=== PATIENT | male | born 1960 | race Caucasian/White ===

== ENCOUNTER 2021-02-14 16:53 | Inpatient (IN) | payer OTHER ==
[~2021-02-14] VITALS: Ht 180.3 cm; Wt 121.3 kg
--- NOTE | ~2021-02-14 | PROC ---
[address] [address] PROCEDURE REPORT Name: ZACHERY IRAHETA Room: [address] IN M.R.#: [id number] Admission: 02/14/21 Attend Phys: Yareli Crooks MD Discharge: 02/17/21 Date of : 58 Report #: [id number] THIS REPORT FOR: cc: FAM - No family physician/PCP FAM - No family physician/PCP [facility],Medical Records Staff ~ For GI report, please see the Provation report in Perceptive 7 content. By: 0648Medical Records Staff DRISS /[place]
[~2021-02-14 16:53] MED LIST: ASPIR 8181 MG PO; EFFIENT10 MG PO; LIPITOR 20 MG T20 M1 PO; LISINOPRIL5 MG PO; NITROGLYCERIN0.4 MG SUBLING; TOPROL XL25 MG PO
[2021-02-14 17:06] VITALS: BP 133/72
[2021-02-14 17:39] LABS: ABSOLUTE BASOPHILS 0.2 thou/uL (0.0-0.2); ABSOLUTE LYMPHOCYTES 3.2 thou/uL (0.8-5.3); ABSOLUTE MONOCYTES 0.5 thou/uL (0.0-1.2); ABSOLUTE NEUTROPHILS 7.4 thou/uL (1.6-8.1); BASOPHILS 1.4 %; EOSINOPHILS 0.3 %; HEMATOCRIT 34.9 % (42.0-52.0); HEMOGLOBIN 11.7 gm/dL (14.0-18.0); LYMPHOCYTES 28.1 %; MCH 34.3 pg (26.0-34.0); MCHC 33.6 g/dL (28.0-37.0); MONOCYTES 4.1 %; MPV 8.2 fl. (7.2-11.1); NUCLEATED RBCS 0 /100WBC; PLATELET COUNT* 213 thou/uL (150-400); POLYS 66.1 %; RBC 3.42 mil/uL (4.50-6.00); RDW-CV 13.5 % (10.5-14.5); WBC 11.3 thou/uL (4.0-11.0)
[2021-02-14] MEDS ORDERED: PRILOSEC OTC20 MG PO (17:52)
[2021-02-14 18:06] LABS: CALCIUM 8.7 mg/dL (8.5-10.1); POTASSIUM 4.8 mmol/L (3.5-5.1)
[2021-02-14 18:09] LABS: ALBUMIN 3.3 g/dL (3.4-5.0); TOTAL BILIRUBIN 0.9 mg/dL (<0.1-1.0); TOTAL PROTEIN 7.6 g/dL (6.4-8.2)
[2021-02-14 19:50] LABS: URINE BILIRUBIN NEGATIVE (Negative); URINE BLOOD NEGATIVE (Negative); URINE CLARITY CLEAR; URINE COLOR YELLOW; URINE GLUCOSE-RANDOM NEGATIVE (Negative); URINE KETONES NEGATIVE (Negative); URINE LEUKOCYTES-REFLEX NEGATIVE (Negative); URINE NITRITE-REFLEX NEGATIVE (Negative); URINE PROTEIN NEGATIVE (Negative); URINE SPECIFIC GRAVITY <= 1.005 (1.005-1.030); URINE UROBILINOGEN 0.2 E.U./dl (0.2-1.0)
[2021-02-14 19:57] LABS: AMP/METHAMP Negative (Negative); BARBITURATES Negative (Negative); BENZODIAZEPINES Negative (Negative); COCAINE Negative (Negative); METHADONE Negative (Negative); OPIATES Negative (Negative); PCP Negative (Negative); THC POSITIVE (Negative)
[2021-02-14 20:34] LABS: ABSOLUTE BASOPHILS 0.1 thou/uL (0.0-0.2); ABSOLUTE MONOCYTES 0.5 thou/uL (0.0-1.2); ABSOLUTE NEUTROPHILS 6.6 thou/uL (1.6-8.1); BASOPHILS 0.6 %; EOSINOPHILS 0.1 %; HEMATOCRIT 30.3 % (42.0-52.0); HEMOGLOBIN 10.4 gm/dL (14.0-18.0); LYMPHOCYTES 29.9 %; MCHC 34.4 g/dL (28.0-37.0); MCV 101.7 fL (80.0-100.0); MONOCYTES 4.5 %; NUCLEATED RBCS 0 /100WBC; PLATELET COUNT* 173 thou/uL (150-400); POLYS 64.9 %; RBC 2.98 mil/uL (4.50-6.00); RDW-CV 13.8 % (10.5-14.5); WBC 10.2 thou/uL (4.0-11.0)
[2021-02-14 23:30] VITALS: BP 117/64
[2021-02-15 03:30] VITALS: BP 129/67
[2021-02-15 03:35] LABS: ABSOLUTE BASOPHILS 0.1 thou/uL (0.0-0.2); ABSOLUTE EOSINOPHILS 0.1 thou/uL (0.0-0.7); ABSOLUTE LYMPHOCYTES 4.1 thou/uL (0.8-5.3); ABSOLUTE MONOCYTES 0.6 thou/uL (0.0-1.2); ABSOLUTE NEUTROPHILS 6.4 thou/uL (1.6-8.1); BASOPHILS 0.5 %; EOSINOPHILS 0.7 %; HEMATOCRIT 28.8 % (42.0-52.0); HEMOGLOBIN 9.9 gm/dL (14.0-18.0); LYMPHOCYTES 36.4 %; MCH 35.1 pg (26.0-34.0); MCHC 34.5 g/dL (28.0-37.0); MCV 101.9 fL (80.0-100.0); MONOCYTES 5.6 %; MPV 7.9 fl. (7.2-11.1); NUCLEATED RBCS 0 /100WBC; PLATELET COUNT* 179 thou/uL (150-400); POLYS 56.8 %; RBC 2.82 mil/uL (4.50-6.00); WBC 11.3 thou/uL (4.0-11.0)
[2021-02-15 03:43] LABS: CALCIUM 8.2 mg/dL (8.5-10.1); POTASSIUM 4.1 mmol/L (3.5-5.1)
[2021-02-15 03:46] LABS: INR 1.1; PROTIME 11.4 Seconds (9.20-11.50)
[2021-02-15 04:44] LABS: ESR (SEDRATE) 30 mm/hr (0-20)
--- NOTE | 2021-02-15 06:17 | EKG ---
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 : 1960 Requested By: Yelena Barton Order Number: [id number] MD: Bassam Miller Measurements Intervals [place] Rate: 91 P: 85 CO: 128 QRS: 55 QRSD: 94 T: 31 QT: 384 QTc: 473 Interpretive Statements Sinus rhythm Probable left atrial enlargement Inferior infarct, old, possible Myocardial infarct finding no longer present ST (T wave) deviation no longer present Possible ischemia no longer present Electronically Signed On 02-15-2021 6:17:03 CDT by Bassam Miller [email or web address] <ELECTRONICALLY SIGNED> By: Bassam Miller MD, FACC 02/15/21 0617 1725 172 Bassam Miller MD, FACC /EPI
[2021-02-15 07:30] VITALS: BP 121/77
[2021-02-15 09:45] VITALS: BP 121/77
[2021-02-15 14:31] VITALS: BP 139/79
[2021-02-15 19:02] LABS: HEMATOCRIT 28.8 % (42.0-52.0); HEMOGLOBIN 9.9 gm/dL (14.0-18.0)
[2021-02-15] MEDS ORDERED: ASA81BEC PO (19:15)
[2021-02-15 20:00] VITALS: BP 138/85
[2021-02-16 00:59] VITALS: BP 114/74
[2021-02-16 04:00] VITALS: BP 120/55
[2021-02-16 04:42] LABS: ABSOLUTE EOSINOPHILS 0.1 thou/uL (0.0-0.7); ABSOLUTE MONOCYTES 0.4 thou/uL (0.0-1.2); ABSOLUTE NEUTROPHILS 4.3 thou/uL (1.6-8.1); BASOPHILS 0.5 %; EOSINOPHILS 1.6 %; HEMATOCRIT 26.5 % (42.0-52.0); HEMOGLOBIN 9.3 gm/dL (14.0-18.0); LYMPHOCYTES 45.3 %; MCH 35.6 pg (26.0-34.0); MCV 101.6 fL (80.0-100.0); MONOCYTES 4.5 %; NUCLEATED RBCS 0 /100WBC; PLATELET COUNT* 174 thou/uL (150-400); POLYS 48.1 %; RBC 2.61 mil/uL (4.50-6.00); RDW-CV 13.8 % (10.5-14.5); WBC 8.8 thou/uL (4.0-11.0)
[2021-02-16 05:12] LABS: ALBUMIN 2.8 g/dL (3.4-5.0); CALCIUM 7.9 mg/dL (8.5-10.1); POTASSIUM 4.1 mmol/L (3.5-5.1); TOTAL BILIRUBIN 0.8 mg/dL (<0.1-1.0); TOTAL PROTEIN 6.4 g/dL (6.4-8.2)
[2021-02-16 08:14] VITALS: BP 130/79
[2021-02-16 12:00] VITALS: BP 95/54
[2021-02-16 13:01] VITALS: BP 128/70
[2021-02-16 20:00] VITALS: BP 121/72
[2021-02-16 21:06] LABS: IgG 1086 mg/dL (603-1613); IgM 102 mg/dL (20-172)
[2021-02-17] VITALS (8 sets, daily range): BP systolic 94–117; BP diastolic 58–72
[2021-02-17 05:07] LABS: HEPATITIS B SURFACE AG Negative (Negative)
[2021-02-17 05:21] LABS: CALCIUM 7.8 mg/dL (8.5-10.1); CREATININE 0.9 mg/dL (0.6-1.3); POTASSIUM 3.7 mmol/L (3.5-5.1)
[2021-02-17 05:34] LABS: ABSOLUTE BASOPHILS 0.1 thou/uL (0.0-0.2); ABSOLUTE EOSINOPHILS 0.1 thou/uL (0.0-0.7); ABSOLUTE LYMPHOCYTES 3.6 thou/uL (0.8-5.3); ABSOLUTE MONOCYTES 0.5 thou/uL (0.0-1.2); ABSOLUTE NEUTROPHILS 4.2 thou/uL (1.6-8.1); BASOPHILS 0.7 %; EOSINOPHILS 1.7 %; HEMATOCRIT 26.8 % (42.0-52.0); HEMOGLOBIN 9.3 gm/dL (14.0-18.0); LYMPHOCYTES 42.2 %; MCH 35.7 pg (26.0-34.0); MCHC 34.8 g/dL (28.0-37.0); MCV 102.5 fL (80.0-100.0); MONOCYTES 5.9 %; MPV 8.3 fl. (7.2-11.1); NUCLEATED RBCS 0 /100WBC; PLATELET COUNT* 166 thou/uL (150-400); POLYS 49.5 %; RBC 2.61 mil/uL (4.50-6.00); RDW-CV 13.6 % (10.5-14.5); WBC 8.6 thou/uL (4.0-11.0)
[2021-02-17 19:07] LABS: ANA INTERPRETATION Negative (())
[2021-02-17 20:42] LABS: ABSOLUTE EOSINOPHILS 0.2 thou/uL (0.0-0.7); ABSOLUTE LYMPHOCYTES 2.9 thou/uL (0.8-5.3); ABSOLUTE MONOCYTES 0.7 thou/uL (0.0-1.2); ABSOLUTE NEUTROPHILS 6.2 thou/uL (1.6-8.1); BASOPHILS 0.1 %; EOSINOPHILS 1.9 %; HEMATOCRIT 27.7 % (42.0-52.0); HEMOGLOBIN 9.5 gm/dL (14.0-18.0); LYMPHOCYTES 29.3 %; MCH 35.1 pg (26.0-34.0); MCHC 34.5 g/dL (28.0-37.0); MCV 101.7 fL (80.0-100.0); MONOCYTES 7.1 %; MPV 7.7 fl. (7.2-11.1); NUCLEATED RBCS 0 /100WBC; PLATELET COUNT* 190 thou/uL (150-400); POLYS 61.6 %; RBC 2.72 mil/uL (4.50-6.00); RDW-CV 13.9 % (10.5-14.5); WBC 10.1 thou/uL (4.0-11.0)
--- NOTE | 2021-02-18 10:06 | CON ---
[address] [address] CONSULTATION Name: ZACHERY IRAHETA Room: [address] IN M.R.#: [id number] Admission: 02/14/21 Attend Phys: Yareli Crooks MD Discharge: 02/17/21 Date of : 58 Report #: [id number] THIS REPORT FOR: cc: FAM - No family physician/PCP FAM - No family physician/PCP Kristofer Powers DO ~ cc: Yareli Crooks MD DATE OF CONSULTATION: 02/15/2021 REFERRING DOCTOR: Yareli Crooks MD The patient has no primary care provider. REASON FOR CONSULTATION: Melena. ____ 1. Melena with associated hematemesis. 2. Chronic acid reflux. 3. Abnormal CAT scan to my eye, suggesting possible cirrhosis. 4. Anemia secondary to #1 above. RECOMMENDATIONS: We will proceed with upper endoscopy today. I have discussed the nature, risks, benefits and alternatives of the procedure with the patient as well and he is agreeable to same. Further recommendations will be made thereafter. HISTORY OF PRESENT ILLNESS: A 60-year-old white male who has not had any medical care for the last few years as he was hospitalized back in 2015 with an AK. He does not have a primary care provider nor he has been seen by any physicians for over the last few years. He has had problem with chronic acid reflux for which he takes esomeprazole once daily with good response to the same. He denies any complaints of any dysphagia or odynophagia, postprandial pain or any problem with his bowels or bowel frequency. He started having some black stools and tarry stools over the weekend and then had some scant hematemesis when he came into the hospital. He denies any complaints referable to his upper or lower GI tract and does not take any nonsteroidals on a regular basis. He is not on any medications at this time other than esomeprazole. He was admitted to the hospital for further evaluation and treatment. With regards to risk factors for liver disease, he does not have any history of chronic alcohol use nor does he have any family history of liver disease. 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 He [place] [address] CONSULTATION Name: ZACHERY IRAHETA Room: [address]#: [id number] Admission: 02/14/21 Attend Phys: Yareli Crooks MD Discharge: 02/17/21 Date of : 58 Report #: [id number] jaundice. Does not have any previous blood transfusions in the past. ALLERGIES: None. MEDICATIONS: Include esomeprazole once daily. He previously had been on aspirin, atorvastatin, lisinopril, Effient, and nitroglycerin. PAST MEDICAL AND SURGICAL HISTORY: Remarkable for coronary artery disease with previous stent placement back in 2014. He has an underlying hypertension, hyperlipidemia. He has not had any followup since that time. He has had no previously surgeries otherwise. SOCIAL HISTORY: The patient does smoke half pack per day. He smokes marijuana on a daily basis, rarely drinks alcohol. FAMILY HISTORY: Negative. PHYSICAL EXAMINATION: GENERAL: Pleasant 60-year-old gentleman who is awake and alert. CARDIOPULMONARY: Revealed regular rate and rhythm. LUNGS: Clear. ABDOMEN: Soft and nontender. No rebound or guarding noted. LABORATORY DATA: His laboratory test from admission on the revealed a white count of 11.3, hemoglobin 11.7, platelet count 213,000. MCV is 102.0 and RDW is 13.5. Over the night, his hemoglobin dropped down to 9.9 with continued normal white count and platelet count. His CMP on admission revealed a sodium 137, potassium 4.8, chloride 103, bicarbonate 24. His BUN was 22, creatinine 1.0 for GFR of 76. Total bilirubin 0.9, alkaline phosphatase 81, AST 39, ALT 34, albumin 3.3. His INR is 1.1. Urine drug screen is positive for marijuana. His alcohol level is negative. CT angiography of the abdomen and pelvis revealed no evidence for any free fluid or anything to suggest active bleeding. To my eye, his liver appeared to be scalloped, but the official read was that the liver appeared normal. Sigmoid diverticulosis was noted without diverticulitis and there is nothing else going on CT scan. His mesenteric vessels were widely patent. DISCUSSION: At the present time, the patient had some GI bleeding with associated hematemesis and melena. We will proceed with upper endoscopy today and make further recommendations thereafter. I have also discussed with the patient the need for him to get established with a primary care provider and he [address] [address] CONSULTATION Name: ZACHERY IRAHETA Room: [address] IN M.R.#: [id number] Admission: 02/14/21 Attend Phys: Yareli Crooks MD Discharge: 02/17/21 Date of : 58 Report #: [id number] needs cardiology followup as well since he has a prior history of coronary artery disease, previous stent placement in 2014. He is agreeable to these plans. <ELECTRONICALLY SIGNED> By: Kristofer Powers DO 02/18/21 1006 0944 [id number] Powers DO /nt
[2021-02-18 14:07] LABS: CERULOPLASMIN 19.3 mg/dL (16.0-31.0)
== END 2021-02-17 21:20 | disposition home or self-care (01) | DRG 432 ==
LOC: M.ERS 16:53 → M.TBA-ER 19:36 → M.2W 02-15 14:14
PROVIDERS: Internal Medicine; Internal Medicine Gastroenterology; Nurse Practitioner Family; ADMIT Family Medicine; ATTEND Family Medicine
PROC: 06L38CZ Occlusion of Esophageal Vein with Extraluminal Device, Via Natural or Artificial Opening Endoscopic (ICD-10-PCS; principal; 2021-02-15)
DX: K74.60 Unspecified cirrhosis of liver (principal); I85.11 Secondary esophageal varices with bleeding; D62 Acute posthemorrhagic anemia; K76.6 Portal hypertension; Z20.822 Contact with and (suspected) exposure to COVID-19; K21.9 Gastro-esophageal reflux disease without esophagitis; I25.10 Atherosclerotic heart disease of native coronary artery without angina pectoris; I10 Essential (primary) hypertension; E78.5 Hyperlipidemia, unspecified; F17.210 Nicotine dependence, cigarettes, uncomplicated; K31.89 Other diseases of stomach and duodenum; I86.4 Gastric varices; F12.10 Cannabis abuse, uncomplicated; Z79.899 Other long term (current) drug therapy

== ENCOUNTER → 2021-06-15 | Outpatient (CLI) | payer OTHER ==
[~2021-06-15] MED LIST changes: +ASA81BEC PO; +BAYER CHEWABLE81 MG PO; +CARAFATE 1 GM TA1 GM PO; +PRILOSEC OTC20 MG PO; +PROPRANOLOL 20M20 MG PO
== END ==
LOC: M.LAB 12:04
PROVIDERS: ATTEND Internal Medicine Gastroenterology
DX: Z01.812 Encounter for preprocedural laboratory examination (principal); Z20.822 Contact with and (suspected) exposure to COVID-19

== ENCOUNTER → 2021-06-16 | Day surgery (SDC) | payer OTHER ==
--- NOTE | ~2021-06-16 | PROC ---
[facility] [address] [place] [address] PROCEDURE REPORT Name: ZACHERY IRAHETA Room: [facility].#: [id number] Admission: 06/16/21 Attend Phys: Kristofer Powers DO Discharge: Date of : 58 Report #: [id number] THIS REPORT FOR: cc: FAM - No family physician/PCP FAM - No family physician/PCP [facility],Medical Records Staff ~ For Gi report, please see the Provation report in Perceptive 7 content. By: 0842Medical Records Staff DRISS /[place]
[2021-06-16 09:30] LABS: HEMATOCRIT 47.9 % (42.0-52.0); HEMOGLOBIN 16.6 gm/dL (14.0-18.0); MCH 34.1 pg (26.0-34.0); MCHC 34.5 g/dL (28.0-37.0); MCV 98.8 fL (80.0-100.0); MPV 8.1 fl. (7.2-11.1); RBC 4.85 mil/uL (4.50-6.00); RDW-CV 14.6 % (10.5-14.5)
[2021-06-16 09:43] LABS: CALCIUM 8.8 mg/dL (8.5-10.1); CREATININE 0.8 mg/dL (0.6-1.3); POTASSIUM 4.4 mmol/L (3.5-5.1)
[2021-06-16 12:49] LABS: ALBUMIN 3.4 g/dL (3.4-5.0); DIRECT BILIRUBIN 0.2 mg/dL (<0.1-0.3); TOTAL PROTEIN 8.1 g/dL (6.4-8.2)
--- NOTE | 2021-06-19 16:06 | PATH ---
[address] [address] PATHOLOGY RPT PROCEDURE Name: IGNACIO IRAHETA Room: [facility].R.#: [id number] Admission: 06/16/21 Date of : 58 Discharge: Report #: [id number] Path Case #: [id number] [facility] Accession Number: [id number] . 01 Material submitted: . rectum - RECTAL POLYP X2 . 01 Clinical history: . EGD AND COLONOSCOPY COLON CANCER SCREEN, ESOPHAGEAL VARICES, PSORIASIS . 02 Diagnosis: Large bowel "rectal polyp x2", biopsy: - Tubular adenoma; negative for high grade dysplasia and malignancy. (HERNAN:clovis; 06/19/2021) MBR 06/19/2021 1424 Local . 02 Electronically signed: . Chepe Garcia MD, Pathologist NPI- [id number] . 01 Gross description: . The specimen is received in formalin, labeled "Ignacio Iraheta, rectal polyp x2". Received are three segments of pale lewis tissue ranging in size from 0.2-0.4 cm in maximum dimensions. The specimen is submitted entirely in cassette A1. (CAA; 06/18/2021) QA/[facility] 06/18/2021 1929 Local . 02 Pathologist provided ICD-10: D12.8 . 02 CPT . 767958 Specimen Comment: A courtesy copy of this report has been sent to [phone] Specimen Comment: Report sent to Performed at: 01 [facility] [address] [place] [id number] MD Renny Haas MD Phone: [phone] Performed at: [address] [id number] MD Kingsley Martinez MD Phone: [phone]
== END | disposition home or self-care (01) ==
LOC: M.SUR
PROVIDERS: Anesthesiology; ATTEND Internal Medicine Gastroenterology
DX: Z12.11 Encounter for screening for malignant neoplasm of colon (principal); D12.8 Benign neoplasm of rectum; K57.30 Diverticulosis of large intestine without perforation or abscess without bleeding; K64.4 Residual hemorrhoidal skin tags; K76.6 Portal hypertension; K31.89 Other diseases of stomach and duodenum; I10 Essential (primary) hypertension; F32.9 Major depressive disorder, single episode, unspecified; K21.9 Gastro-esophageal reflux disease without esophagitis; I25.2 Old myocardial infarction; F17.210 Nicotine dependence, cigarettes, uncomplicated; Z98.890 Other specified postprocedural states; Z79.899 Other long term (current) drug therapy